=== PATIENT | male | born 1950 | race African-American/Black ===

== ENCOUNTER → 2016-10-18 | Outpatient (CLI) | payer OTHER | END | disposition home or self-care (01) | LOC: PCVCIMAG 12:37 | PROVIDERS: ATTEND Internal Medicine | DX: I25.10 Atherosclerotic heart disease of native coronary artery without angina pectoris (principal); I25.5 Ischemic cardiomyopathy; I07.1 Rheumatic tricuspid insufficiency | CPT/HCPCS: 93005; 93306 ==

== ENCOUNTER → 2017-08-23 | Outpatient (CLI) | payer OTHER | END | disposition home or self-care (01) | LOC: PCVCIMAG 13:33 | DX: I50.9 Heart failure, unspecified (principal); I08.8 Other rheumatic multiple valve diseases; I42.9 Cardiomyopathy, unspecified | CPT/HCPCS: 93306 ==